=== PATIENT | male | born 1955 | race Caucasian/White ===

== ENCOUNTER → 2022-02-01 | Outpatient (CLI) | payer MEDICARE ==
--- NOTE | 2022-02-04 11:10 | RAD ---
CLINICAL HISTORY: Reason: DYSPHAGIA X SEVERAL YEARS, REFLUX, SCOPE STUDY RECOMMENDED / Spl. Instructi ons: / History: COMPARISON: None available. TECHNIQUE:A double contrast esophagram study was performed. Thick and thin consistency barium with ef fervescent crystals was administered orally and radiographs were taken under fluoroscopic guidance. Fluoroscopy time was 1.3 minutes. FINDINGS: The esophagus demonstrated normal peristalsis and contour. There was no intrinsic or extrinsic fillin g defects or diverticula seen. Small hiatal hernia otherwise the gastroesophageal junction was normal in appearance. Gastroesophageal reflux to the cervical esophagus. IMPRESSION: Small hiatal hernia. Gastroesophageal reflux to the cervical esophagus. Electronically signed by: Dionicio De Luna MD (02/04/2022 11:07 AM) [facility]
== END ==
LOC: RAD 08:06
PROVIDERS: ATTEND Internal Medicine Gastroenterology
DX: K44.9 Diaphragmatic hernia without obstruction or gangrene (principal); K21.9 Gastro-esophageal reflux disease without esophagitis; R47.02 Dysphasia
CPT/HCPCS: 74220